=== PATIENT | female | born 1935 | race Caucasian/White ===

== ENCOUNTER 2019-09-19 07:06 | Inpatient (IN) ==
--- NOTE | 2019-08-18 22:25 | PAT Medication Instructions ---
Medication Instructions Date of Service August 18, 2019 Home Medications Fish Oil 1 dose PO DAILY Vitamin D3 1 cap PO BID albuterol sulfate [Proventil HFA] 1 inh INHALATION QID PRN amlodipine 2.5 mg PO QAM calcium carbonate-vitamin D3 [Caltrate 600 plus D] 1 tab PO BID hydrochlorothiazide 25 mg PO QAM hydrocortisone 1 applic TOPICAL BID PRN ibandronate [Boniva] 150 mg PO MONTHLY lidocaine 1 patch TOPICAL DAILY PRN loratadine [Claritin] 10 mg PO QAM montelukast [Singulair] 10 mg PO QAM multivitamin 1 tab PO QAM polymyxin B sulf-trimethoprim [Polytrim] 1 drp OPHTHALMIC (EYE) Q3H Continue as directed lidocaine 1 patch TOPICAL DAILY PRN (okay to continue, avoid placement over surgery site area prior to surgery) ibandronate [Boniva] 150 mg PO MONTHLY STOP taking 2 weeks before surgery (or as soon as possible if surgery is within 2 weeks) Fish Oil 1 dose PO DAILY STOP taking 24 hours before surgery hydrocortisone 1 applic TOPICAL BID PRN DO NOT take the morning of surgery Vitamin D3 1 cap PO BID calcium carbonate-vitamin D3 [Caltrate 600 plus D] 1 tab PO BID hydrochlorothiazide 25 mg PO QAM loratadine [Claritin] 10 mg PO QAM montelukast [Singulair] 10 mg PO QAM multivitamin 1 tab PO QAM Take morning of surgery With a small sip of water, OTHERWISE NOTHING TO EAT OR DRINK AFTER MIDNIGHT: albuterol sulfate [Proventil HFA] 1 inh INHALATION QID PRN (use if needed; please bring with you to hospital day of surgery if possible) amlodipine 2.5 mg PO QAM polymyxin B sulf-trimethoprim [Polytrim] 1 drp OPHTHALMIC (EYE) Q3H Take evening before surgery Vitamin D3 1 cap PO BID albuterol sulfate [Proventil HFA] 1 inh INHALATION QID PRN (if needed) calcium carbonate-vitamin D3 [Caltrate 600 plus D] 1 tab PO BID polymyxin B sulf-trimethoprim [Polytrim] 1 drp OPHTHALMIC (EYE) Q3H Other Notes If you have any questions please call us at [phone] or [phone] or [phone] or [phone]
--- NOTE | 2019-08-19 11:30 | Anesthesiology Consultation ---
Date of Service August 19, 2019 Assessment & Plan (1) Encounter for pre-operative examination: Per PAT assessment on 08/18: Travel screen- patient lives in [facility]/no travel. No known Covid positive contacts. No history of Covid testing. Does report occasional SOB felt related to asthma (chronic issue with no new changes). Otherwise, no current Covid related symptoms. Chart Review Chart Review: Acceptable Risk for Surgery and Patient seen in Pre Admission Testing Teaching & Discussion Pre-Anesthesia Teaching/Discussion Notes: Instructed NPO after midnight before surgery,except medications with 15 cc of water. Medication instructions provided according to the PAT guidelines. History Surgery Operation Date: 09/19/19 12:10 Proposed Procedures p Right Total Knee Arthroplasty - Milton Silverman DO Height/Weight Height: 5 ft 2 in Weight: 61 kg Allergies Allergy/AdvReac Type Severity Reaction Status Date / Time Penicillins Allergy Rash Verified 08/14/19 11:31 oxycodone AdvReac Confusion Verified 08/14/19 11:38 Medications Home Medications Medication Instructions Recorded Confirmed Last Taken Fish Oil 1 dose PO DAILY 08/14/19 08/14/19 Unknown Vitamin D3 1 cap PO BID 08/14/19 08/14/19 Unknown albuterol sulfate [Proventil HFA] 1 inh INHALATION QID PRN 08/14/19 08/14/19 Unknown amlodipine 2.5 mg PO QAM 08/14/19 08/14/19 Unknown calcium carbonate-vitamin D3 1 tab PO BID 08/14/19 08/14/19 Unknown [Caltrate 600 plus D] hydrochlorothiazide 25 mg PO QAM 08/14/19 08/14/19 Unknown hydrocortisone 1 applic TOPICAL BID PRN 08/14/19 08/14/19 Unknown ibandronate [Boniva] 150 mg PO MONTHLY 08/14/19 08/14/19 Unknown lidocaine 1 patch TOPICAL DAILY PRN 08/14/19 08/14/19 Unknown loratadine [Claritin] 10 mg PO QAM 08/14/19 08/14/19 Unknown montelukast [Singulair] 10 mg PO QAM 08/14/19 08/14/19 Unknown multivitamin 1 tab PO QAM 08/14/19 08/14/19 Unknown polymyxin B sulf-trimethoprim 1 drp OPHTHALMIC (EYE) Q3H 08/14/19 08/14/19 Unknown [Polytrim] Past Medical History Medical History Asthma controlled 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 EKG, subsequent unremarkable nuclear stress test done 09/2018 Conjunctivitis Left eye - dx by PCP 08/07/19, almost entirely resolved as of PAT visit/PCP monitoring [place] (hard of hearing) Hypertension Osteoarthritis Osteoporosis PVCs (premature ventricular contractions) Exercise / Class Metabolic Activity III < 4 Walking/Shop/Light housework Past Family History Family History Other No family history of adverse response to anesthesia Past Surgical History Surgical History History of bunionectomy History of cataract surgery History of colonoscopy History of lymph node biopsy benign History of tubal ligation Past Anesthesia History No Hx of Anesthesia Complications and No Family Hx of Anesthesia Complications History of PONV No Hx of PONV and Hx of Motion Sickness (remote hx) Social History Smoking Status: Never smoker Do You Dip or Chew Tobacco: No Hx Alcohol Use: No alcohol intake frequency: holidays/special occasions only Hx Substance Use: No substance use type: does not use Review of Systems Does report occasional SOB felt related to asthma (chronic issue with no new changes) Patient denies chest pain, joint pain, reflux, cough, wheezing, palpitations. Physical Exam Vital Signs VITALS BP 170/84 P 98 TEMP 98.0 SP02 98%RA RESP 20 PHYSICAL Full neck and c-spine range of motion. Full TMJ range of motion. TMD 2.5 finger breaths (Small chin) Mallampati Score 3 Dentition: several missing molars, crown on molar Lungs: clear throughout to auscultation Cardiac: regular rate and rhythm, no murmurs noted Spine: normal Carotid arteries: negative bruit Extremities: no edema Testing Laboratory Results 08/19/19 11:59 08/19/19 11:59 PT 10.3 Seconds (9.0-12.0) 08/19/19 11:59 INR 1.0 (0.9-1.1) 08/19/19 11:59 APTT 30.0 Seconds (21.0-31.0) 08/19/19 11:59 Hemoglobin A1c 5.5 % (4.5-5.6) 08/19/19 11:59 Urine Color Yellow 08/19/19 11:59 Urine Appearance Clear (Clear) 08/19/19 11:59 Urine pH 7.5 (4.5-7.5) 08/19/19 11:59 Ur Specific [place] 1.008 (1.000-1.030) 08/19/19 11:59 Urine Protein Negative (Negative) 08/19/19 11:59 Urine Glucose (UA) Negative (Negative) 08/19/19 11:59 Urine Ketones Negative (Negative) 08/19/19 11:59 Urine Nitrite Negative (Negative) 08/19/19 11:59 Ur Leukocyte Esterase Negative (Negative) 08/19/19 11:59 Blood Type O Positive 08/19/19 11:59 Antibody Screen NEGATIVE 08/19/19 11:59 Electrocardiogram Date: 09/18/18 SR with occasional PVC's at 88bpm. iRBBB. LAFB. Subsequent nuclear stress test done 10/11/18* Chest X-Ray Date: 08/19/19 Emphysema. Small lobular density at the left lung base on the frontal view. This corresponds to the anterior density on the lateral view. Therefore, this favors a prominent mediastinal fat pad. CXR being faxed to PCP for their reference. Stress Test Date: 10/11/18 Type: nuclear (Lexiscan) Normal pharmacologic cardiolite stress test without evidence of infarct or isch emia. Defect most likely related to artifact given normal wall motion analysis. Normal stress EKG. EF 69%. 86% MPHR.
[2019-08-19 12:49] LABS: Basophils # (auto) 0.05 K/uL (0-0.2); Basophils % (auto) 0.5 %; Eosinophils # (auto) 0.51 K/uL (0-0.5); Eosinophils % (auto) 5.4 %; Hematocrit (blood only) 38.7 % (37-47); Hemoglobin 13.1 g/dL (12.0-16.0); Immature Granulocytes # (auto) 0.02 K/uL (0.00-0.02); Immature Granulocytes % (auto) 0.2 %; Lymphocytes # (auto) 2.44 K/uL (1.2-3.4); Lymphocytes % (auto) 25.8 %; Mean Corpuscular Hemoglobin 28.7 pg (25-34); Mean Corpuscular Hgb Conc 33.9 g/dL (32-36); Mean Corpuscular Volume 84.7 fL (80-100); Mean Platelet Volume 9.3 fL (7.4-10.4); Monocytes # (auto) 0.75 K/uL (0.11-0.59); Monocytes % (auto) 7.9 %; Neutrophils % (auto) 60.2 %; Platelet Count 368 K/uL (130-400); RDW Coefficient of Variation 13.5 % (11.5-14.5); RDW Standard Deviation 41.4 fL (36.4-46.3); Red Blood Count 4.57 M/uL (4.2-5.4); White Blood Count 9.47 K/uL (4.8-10.8)
[2019-08-19 12:55] LABS: Appearance Urine Clear (Clear); Bilirubin Urine Negative (Negative); Blood Urine Negative (Negative); Color Urine Yellow; Glucose Urine UA Negative (Negative); Ketones Urine Negative (Negative); Leukocyte Esterase Urine Negative (Negative); Nitrite Urine Negative (Negative); Protein Urine Negative (Negative); Specific Gravity Urine 1.008 (1.000-1.030); Urobilinogen Urine Negative (Negative); pH Urine 7.5 (4.5-7.5)
[2019-08-19 13:01] LABS: Partial Thromboplastin Ratio 1.1; Prothrombin Time 10.3 Seconds (9.0-12.0)
--- NOTE | 2019-08-19 13:01 | XRay Report ---
XR chest Pre-admission PA/Lat HISTORY: Preop. COMPARISON: None. FINDINGS: The lungs are hyperexpanded with apical predominant emphysematous changes. No pneumothorax. No pleural effusions. The heart is normal in size. The right lung is clear. Small lobular density at the left lung base on the frontal view. This corresponds to the anterior density on the lateral view . Therefore, this favors a prominent mediastinal fat pad. IMPRESSION: 1. Emphysema. 2. Small lobular density at the left lung base on the frontal view. This corresponds to the anterior density on the lateral view. Therefore, this favors a prominent mediastinal fat pad. Comparison to ol d studies would be helpful to assess for stability. ACT 112: Negative or not required by law. Electronically signed by: Isaias Mckee M.D. 08/19/2019 1:00 PM
[2019-08-19 13:08] LABS: Albumin Level 3.7 gm/dl (3.4-5.0); Calcium 9.9 mg/dl (8.5-10.1); Creatinine Clr Calc Pharmacy 53.3 ml/min; Est GFR (African American) 93.5; Est GFR (Non-African American) 80.7; Potassium 3.2 mmol/L (3.5-5.1)
[2019-08-19 13:09] LABS: Estimated Average Glucose 111 mg/dl; Hemoglobin A1C 5.5 % (4.5-5.6)
--- NOTE | 2019-09-18 22:44 | History & Physical Report ---
Date of Service September 18, 2019 Assessment & Plan (1) Osteoarthritis of right knee: Schedule a right knee TKA for 09.19.2019. All potential risks, benefits, complications, alternatives, and rehab have been discussed with the patient and she wishes to proceed. Plan for ASA 81 mg BID x 4 days for DVT prophylaxis. History of Present Illness Chief Complaint: right knee pain Primary Care Provider: Bhavesh Green MD This is a patient who has been treated conservatively for right knee DJD for many years. She has failed all conservative management and now being set up for a right TKA. Allergies Allergy/AdvReac Type Severity Reaction Status Date / Time Penicillins Allergy Rash Verified 08/14/19 11:31 oxycodone AdvReac Confusion Verified 08/14/19 11:38 Home Medications Home Medications Medication Instructions Recorded Confirmed Type Fish Oil 1 dose PO DAILY 08/14/19 08/14/19 History Vitamin D3 1 cap PO BID 08/14/19 08/14/19 History albuterol sulfate [Proventil HFA] 1 inh INHALATION QID PRN 08/14/19 08/14/19 History calcium carbonate-vitamin D3 1 tab PO BID 08/14/19 08/14/19 History [Caltrate 600 plus D] hydrocortisone 1 applic TOPICAL BID PRN 08/14/19 08/14/19 History lidocaine 1 patch TOPICAL DAILY PRN 08/14/19 08/14/19 History loratadine [Claritin] 10 mg PO QAM 08/14/19 08/14/19 History montelukast [Singulair] 10 mg PO QAM 08/14/19 08/14/19 History multivitamin 1 tab PO QAM 08/14/19 08/14/19 History amlodipine 10 mg PO DAILY 09/17/19 09/17/19 History moxifloxacin 1 drp OPHTHALMIC (EYE) TID 09/17/19 09/17/19 History Past Med/Surg History Medical History Asthma controlled 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 EKG, subsequent unremarkable nuclear stress test done 09/2018 Conjunctivitis Left eye - dx by PCP 08/07/19, almost entirely resolved as of PAT visit/PCP monitoring [place] (hard of hearing) Hypertension Osteoarthritis Osteoporosis PVCs (premature ventricular contractions) Surgical History History of bunionectomy History of cataract surgery History of colonoscopy History of lymph node biopsy benign History of tubal ligation Family History Other No family history of adverse response to anesthesia Social History Preferred Language: Maltese Communication Ability: Effective Gift Shop Assistant Required: No Beliefs That Will Affect Care: None Current Living Situation: Alone Other Information That Helps Us Care for You: No Feels Safe at Home: Yes Safety Concerns: Feels Safe At This Time Smoking Status: Never smoker Do You Dip or Chew Tobacco: No ; Second Hand Exposure: Yes ( was a smoker) ; Hx Alcohol Use: No Hx Substance Use: No Physical Exam Constitutional: well developed and well nourished; no acute distress ENMT: external ear and nose normal, oropharynx normal Neck: trachea midline, no thyromegaly Respiratory: normal respiratory effort, lungs clear to auscultation Cardiovascular: Rate/Rhythm: regular rate Gastrointestinal (Abdomen): normal bowel sounds, soft, nontender, no hepatosplenomegaly Musculoskeletal: Gait: + antalgic gait (right) Knee: + effusion (right knee), + knee ROM with crepitation (right), + joint line tenderness (right medial and lateral joint spaces) and + Poli's sign positive; no skin erythema and no ecchymosis Skin: no rashes, warm and dry Neurologic: normal touch/pain/proprioception Psychiatric: A+Ox3, euthymic affect Speech: normal rate/rhythm/volume of speech Lymphatic: no cervical or axillary lymphadenopathy
[~2019-09-19 07:06] MED LIST: ACETAMINOPHEN 500 MG TAB PO SCH; CLINDAMYCIN 600 MG/54 ML BAG IV SCH; CeleBREX 200 MG CAP PO SCH; FAMOTIDINE 20 MG TAB PO SCH; GABAPENTIN 300 MG CAP PO SCH; LR 500ML BOLUS, THEN 15ML/HR IV SCH; METOCLOPRAMIDE HCL 10 MG TABLET PO SCH; OXYCODONE HCL 10 MG TABCR (OXYCONTIN) PO SCH; ROPIVACAINE 0.5% HCL/PF 150 MG, BUPIVACAINE 0.5% MPF 30 ML, EPINEPHrine 30MG/30ML (OR U... INFIL SCH; dexAMETHasone 4 MG TAB PO SCH
[2019-09-19] MEDS ORDERED: BUPIVACAINE 0.5 % 5 MG/1 ML PF 10ML VIAL ONE (07:21)
[2019-09-19] MEDS ORDERED: ROPIVACAINE 0.5% 5 MG/ML 30 ML VIAL ONE (07:21)
[2019-09-19] MEDS ORDERED: BACITRACIN INJ 50,000 UNIT VIAL ONE (07:47)
[2019-09-19] MEDS ORDERED: ORTHO JOINT ANESTHETIC ONE (07:47)
[2019-09-19] MEDS ORDERED: CEFAZOLIN 2,000 MG/15 ML IV PUSH IV ONE (08:04)
--- NOTE | 2019-09-19 08:25 | History & Physical Bridge Note ---
Date of Service September 19, 2019 History & Physical Bridge Note I have examined the patient, reviewed the History & Physical and in the interval since the performance of the History & Physical I have noted the following changes of clinical significance: no changes noted
[2019-09-19] MEDS ORDERED: PROPOFOL IV EMULSION 10 MG/ML 20 ML VIAL IV ONE (08:27)
[2019-09-19] MEDS ORDERED: LIDOCAINE HCL 2% 2 ML VIAL/AMP(20MG/ML) INFIL ONE (08:27)
[2019-09-19] MEDS ORDERED: MIDAZOLAM HCL 1 MG/ML 2ML VIAL ONE (08:27)
[2019-09-19] MEDS ORDERED: ATROPINE SULFATE 0.1 MG/ML 10ML SYR IV PRN (08:53)
[2019-09-19] MEDS ORDERED: fentaNYL citrate 100 MCG/2 ML VIAL IV PRN (08:53)
[2019-09-19] MEDS ORDERED: ePHEDrine sulfate 50 MG/ML AMP IV PRN (08:53)
[2019-09-19] MEDS ORDERED: TRANEXAMIC ACID / 0.7% NACL 1,000 MG/100 ML BAG IV STA (09:42)
[2019-09-19] MEDS ORDERED: TRANEXAMIC ACID / 0.7% NACL 1000MG/100ML BAG IV ONE (09:43)
--- NOTE | 2019-09-19 11:04 | Post Operative Brief Note ---
Immediate Post Op Note v1 Date of Surgery September 19, 2019 Pre & Post Diagnosis Operation Date: 09/19/19 09:00 Pre-Op Diagnosis: Osteoarthrits Right Knee, degenerative joint disease right knee, genu varum right, right knee pain Post-Op Diagnosis: Osteoarthrits Right Knee, degenerative joint disease right knee, genu varum right, right knee pain, osteopenic femur and tibia I identified the patient and participated in the time-out.: Yes Procedure Operation Date: 09/19/19 09:00 Actual Procedures p Right Total Knee Arthroplasty with Desai & Nephew journey 2 MRI matched components; size 5 Oxinium femur, size 3 tibia, 10 mm posterior stabilized polyethylene and 32 mm patella (Right) - Milton Silverman DO Surgeon Milton Silverman DO Equipment Tester Ashish Colindres PA-C Estimated Blood Loss 5 Findings Consistent with Post-Op Diagnosis Specimens Bone and tissue right knee Drains Hemovac Drain Anesthesia Type Spinal MAC Complications none Disposition Accompanied Patient To Recovery: No Disposition: Recovery Room Overlapping Procedure I was present for: the critical portions of procedure. I was immediately available: during the entire case.
--- NOTE | 2019-09-19 11:53 | Operative Report (OR) ---
DATE OF OPERATION: 09/19/2019 PREOPERATIVE DIAGNOSES: 1. Right knee osteoarthritis. 2. Degenerative joint disease, right knee. 3. Genu varum, right knee. 4. Right knee pain. POSTOPERATIVE DIAGNOSES: 1. Osteoarthritis, right knee. 2. Degenerative joint disease, right knee. 3. Genu varum, right knee. 4. Right knee pain. 5. Osteopenic femur and tibia. PROCEDURE: Right total knee arthroplasty with Desai and Nephew Journey II MRI matched components, size 5 Oxinium femur, size 3 tibia, 10 mm posterior stabilized polyethylene and a 32 mm patella. SURGEON: Milton Silverman DO. COURSE DEVELOPER: Ashish Colindres PA-C. ANESTHESIA: Spinal, MAC with adductor canal block and intra-articular local. SPECIMENS: Bone and tissue, right knee. DRAINS: Hemovac x2. COMPLICATIONS: None. BLOOD LOSS: 5 mL. PERTINENT HISTORY: This is an 84-year-old female with chronic progressive and worsening right knee pain and deformity over the last 5-7 years. Over the last 12 months; however, the patient had severe pain in the knee and failed all conservative measures including physician directed home exercises, physical therapy, use of a brace, use of an assistive device, topical and oral anti-inflammatories, intra-articular injections, rest, observation and modification of activities. The patient had radiographs demonstrating complete loss of joint space, medial compartment and patellofemoral compartment with marginal osteophytes, subchondral sclerosis and subchondral cysts. The patient is scheduled for surgery as indicated. All potential risks, benefits, complications, alternatives, rehab, potential for incomplete relief of symptoms, need for further surgery, DVT, PE, , persistent pain, swelling, scarring, weakness, neurovascular injury, wound complications, hardware failure, nonunion, malunion, bone fracture were discussed with the patient. The patient decided to proceed with the procedure as indicated. PROCEDURE: The patient was taken to the Operative Suite and placed supine on the operating table after spinal epidural was initiated. Next, tourniquet was placed high on the right thigh over cast padding and the patient was sedated. The right lower extremity was then sterilely prepped and draped in the usual fashion. It was elevated and exsanguinated with an Esmarch bandage and tourniquet inflated to 350 mmHg. Next, a 10-blade scalpel incision was made along the anterior midline of the right knee with incision deep through the subcutaneous tissue. Meticulous hemostasis was utilized with electrocautery. Full thickness skin flaps were developed both medially and laterally and 10-blade scalpel was used to make a median parapatellar incision in the extensor. The patella was everted and soft tissue releases were performed. The medial collateral was noted to be slightly tight so this was partially released using pie-crusting technique and the Dutton elevator was placed from the posterior aspect of the capsule releasing any contracture. Next, the patella was everted and resurfaced using sagittal saw and orthogonal cuts. After caliper measured 24 mm, residual patella was approximately 12 mm and 32 mm button trial was placed and then drilled. Next, the appropriate retractors were placed and the femoral patient matched cutting block was pinned to the distal aspect of the femur. The distal femoral cut was made and pinned with pins and the distal femoral cutting guide was removed. Bone was noted to be significantly soft with increased loss of calcification with softening of the endosteal bone of both the femur and the tibia. The 4-in-1 cutting block was then pinned in place and anterior, posterior, anterior chamfer, and posterior chamfer cuts were made. Block and bone fragments were then removed followed by exposure of the proximal tibia. Sharp Hohmann was used to place just posterior to the tibia to protract it. Medial and lateral sharp Hohmann's were placed to protect the soft tissue and the tibial cutting block was then pinned in place. Tibial alignment pradeep was utilized to confirm alignment and the proximal tibia was then cut made with sagittal saw. Fragment was removed. The Size 8 tibial trial was pinned in place and circumferential proximal release was performed with electrocautery around the proximal tibia. Next, the femoral trial was placed within appropriate medial and lateral alignment and then the cutting block was then put into place. It was reamed and box cut was performed. Excess debris was removed from the femoral notch. The insert was placed into the distal aspect of the femur. Trial poly Size 10 mm was placed in the proximal tibia. The knee was reduced. Trial poly Size 38 mm was placed in the patella. The knee was reduced. Excellent alignment and range of motion was achieved with correction of the genu varum and flexion contracture was achieved. Of note, +2 distal femoral cut was performed as a result of his flexion contracture prior to placement of the 4-in-1 cutting block. Next, all components were removed. The Orthomix was injected into the posterior capsule and anterior aspect of the capsule. Next, the wound was lavaged with pulsatile lavage and all surfaces were suctioned and dried. Palacos-G cement was placed in the distal femur, proximal tibia, patella, and then a small amount was placed in the canal of the tibia. All implants were impacted into place in a stable fashion. Excess cement was removed from the joint. The patellar button was cemented and clamped in place. After sufficient drying time elapsed a 10-Mongolian double lumen Hemovac drain was placed in the anterolateral aspect of the knee. The extensor mechanism was closed using interrupted #1 Vicryl. The dermis was closed using buried interrupted 2-0 Vicryl. The skin was closed with skin katia. Sterile compressive dressing from the toes to the groin was applied. The tourniquet was released. The patient was awakened and taken to the Recovery Room in stable condition. I attest to the content of the Intraoperative Record and any orders documented therein. Any exceptions are noted below. COLTOND
--- NOTE | 2019-09-19 12:06 | Anesthesiology Progress Note ---
Date of Service September 19, 2019 Anesthesia Post Procedure Vital Signs Vital Signs: Temp Pulse Pulse Resp BP Pulse Ox 09/19/19 11:55 75 22 128/77 97 09/19/19 11:45 77 20 124/86 98 09/19/19 11:35 74 18 125/70 97 09/19/19 11:27 36.4 C L 67 19 103/61 100 09/19/19 08:42 88 17 153/72 H 99 09/19/19 07:41 37.1 C 90 20 170/94 H 100 Transfer of Care Handoff Completed per policy Notes Mental Status: alert / awake / arousable and participated in evaluation Patient Amnestic to Procedure: Yes Nausea / Vomiting: adequately controlled Pain: adequately controlled Airway Patency, RR, SpO2: stable & adequate BP & HR: stable & adequate Hydration State: stable & adequate Neuraxial Anesthesia: was administered and sensory block is resolving Anesthetic Complications: no major complications apparent
--- NOTE | 2019-09-19 12:12 | XRay Report ---
XR knee RT 1 or 2V routine CLINICAL HISTORY: Surgical Post Op COMPARISON: None. DISCUSSION: Anatomic alignment posttotal right knee arthroplasty. Could contact between prosthetic an d underlying bone. Expected postoperative soft tissue change. IMPRESSION: Anatomic alignment posttotal right knee arthroplasty. ACT 112: Negative or not required by law. The above report was generated using voice recognition software. It may contain grammatical, syntax or spelling errors. Electronically signed by: Eliu Barrera M.D. 09/19/2019 12:10 PM
[2019-09-19] MEDS ORDERED: ALBUTEROL HFA 8 GM INHALER INH PRN (12:48)
[2019-09-19] MEDS ORDERED: HYDROmorphone INJ 0.5 MG/0.5 ML SYR IV PRN (12:48)
[2019-09-19] MEDS ORDERED: ONDANSETRON INJ 2 MG/ML 2 ML VIAL IV PRN (12:48)
[2019-09-19] MEDS ORDERED: bisacodyL 10 MG SUPP PR PRN (12:48)
[2019-09-19] MEDS ORDERED: NALOXONE HCL 0.4 MG/1 ML VIAL/CARP IV PRN (12:48)
[2019-09-19] MEDS ORDERED: MAGNESIUM HYDROXIDE SUSP 30 ML UDC PO PRN (12:48)
--- NOTE | 2019-09-19 13:15 | Hospitalist Consultation ---
Date of Consultation September 19, 2019 Assessment & Plan (1) Status post right knee replacement: This is an 84yo F with a PMH of HTN, HLD and asthma who is POD#0 s/p R TKA by Dr. Silverman. -POD#0 s/p R TKA by Dr. Silverman -Pt is doing well post-operatively -Per ortho for pain control, wound care, anticoagulation and activities -Monitor H&H (EBL: 5ml) , continue incentive spirometry, PT/OT when appropriate (2) Hypertension: Normotensive. Continue amlodipine (3) Bifascicular block: Noted in outpatient records as well as preop EKG. Will repeat EKG if needed (4) Asthma: Continue home inhalers, Singulair PCP: Shilpi Martin) Dispo: Plan to return home once medically stable Patient seen in collaboration with Dr. Ramirez. Please see addendum. Supervising Physician Co-Signing Physician Notes Patient is an 84-year-old female with history of hypertension, dyslipidemia and other medical problems was seen and examined postop after having right total knee arthroplasty by Dr. Silverman. Patient is doing well postop. She states hayes ving some leg numbness in her right knee, foot. Denies any chest pain, shortness of breath. On exam patient is moderately built and nourished, normocephalic atraumatic, lungs are clear to auscultation, decreased breath sounds, S1-S2, no murmur, no pedal edema, abdomen soft nontender, right knee surgical site in dressing, grossly no focal neurological deficits. Patient is consulted for postop medical management. Monitor for postop anemia. Continue bowel regimen to prevent constipation. DVT prophylaxis, activity, pain control as per primary team. Continue home medications for hypertension. QTC is prolonged at 467. Potassium replaced for hypokalemia. I personally reviewed the record. Patient is interviewed and examined at bedside. Patient's care is coordinated with Bee Candelaria PA-C. Please refer to the documentation above for details of patient's presentation and for discussion of other issues. History of Present Illness Reason for Consultation: post op medical mgmt Attending Physician: Milton Silverman, DO History of Present Illness This is an 84yo F with a PMH of HTN, HLD and asthma who is POD#0 s/p R TKA by Dr. Silverman. Patient is feeling well postoperatively. Denies any surgical site pain. Tolerating lunch well without nausea or vomiting. Denies any fever, chills, lightheadedness, headache, chest pain, shortness of breath, abdominal pain, dysuria, diarrhea or constipation. Allergies Allergy/AdvReac Type Severity Reaction Status Date / Time Penicillins Allergy Rash Verified 09/19/19 07:44 oxycodone AdvReac Confusion Verified 09/19/19 07:44 Home Medications Home Medications Medication Instructions Recorded Confirmed Type Fish Oil 1 dose PO DAILY 08/14/19 09/19/19 History albuterol sulfate [Proventil HFA] 1 inh INHALATION QID PRN 08/14/19 09/19/19 History calcium carbonate-vitamin D3 1 tab PO BID 08/14/19 09/19/19 History [Caltrate 600 plus D] hydrocortisone 1 applic TOPICAL BID PRN 08/14/19 09/19/19 History loratadine [Claritin] 10 mg PO QAM 08/14/19 09/19/19 History montelukast [Singulair] 10 mg PO HS 08/14/19 09/19/19 History multivitamin 1 tab PO QAM 08/14/19 09/19/19 History amlodipine 10 mg PO DAILY 09/17/19 09/19/19 History moxifloxacin 1 drp OPHTHALMIC (EYE) TID 09/17/19 09/19/19 History cholecalciferol (vitamin D3) 25 mcg PO DAILY 09/19/19 09/19/19 History Patient History Medical History Asthma controlled 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 EKG, subsequent unremarkable nuclear stress test done 09/2018 Conjunctivitis Left eye - dx by PCP 08/07/19, almost entirely resolved as of PAT visit/PCP monitoring PAMUNKEY (hard of hearing) Hypertension Osteoarthritis Osteoporosis PVCs (premature ventricular contractions) Surgical History History of bunionectomy History of cataract surgery History of colonoscopy History of lymph node biopsy benign History of tubal ligation Family History (Updated 09/19/19 @ 15:01 by Bee Candelaria PA-C) Other Hypertension No family history of adverse response to anesthesia Stroke Social History Preferred Language: Romanian Communication Ability: Effective Biology Lecturer Required: No Beliefs That Will Affect Care: None Current Living Situation: Alone Other Information That Helps Us Care for You: No Feels Safe at Home: Yes Safety Concerns: Feels Safe At This Time Smoking Status: Never smoker Do You Dip or Chew Tobacco: No ; Second Hand Exposure: Yes ( was a smoker) ; Hx Alcohol Use: No Hx Substance Use: No Review of Systems Review of Systems: At least ten systems reviewed and negative except as noted in the HPI. Physical Exam Physical Exam: General Appearance: WD/WN, vitals as above, NAD, sitting up in bed, pleasant, conversing easily Head: normocephalic, atraumatic Eyes: normal inspection, PERRL, conjunctivae normal, anicteric sclerae ENT: external ear and nose normal, oropharynx normal Neck: trachea midline, no thyromegaly normal visual inspection Respiratory: normal respiratory effort, lungs clear to auscultation but decreased breath sounds bilaterally, no wheeze, rales, rhonchi Cardiovascular: regular rate, rhythm, no murmur, normal peripheral pulses Chest: normal inspection of chest Abdomen/GI: normal bowel sounds, soft, nontender, no hepatosplenomegaly Extremities/Musculoskeletal: R knee with surgical dressing clean, dry, intact. No cyanosis or clubbing, extremities motor strength 5/5 Neurologic: PERRL, CN's II-XI intact bilaterally and moves all extremities Psychiatric: A+Ox3, euthymic affect Skin: no rashes, normal color, warm/dry Results & Data Results & Data ([facility]) Vital Signs (Past 12 Hours) Vital Signs Temp Pulse Pulse Resp BP Pulse Ox 09/19/19 13:00 77 15 129/70 99 09/19/19 12:48 36.5 C 75 15 116/72 97 09/19/19 12:05 36.8 C 68 17 131/66 96 09/19/19 11:55 75 22 128/77 97 09/19/19 11:45 77 20 124/86 98 09/19/19 11:35 74 18 125/70 97 09/19/19 11:27 36.4 C L 67 19 103/61 100 09/19/19 08:42 88 17 153/72 H 99 09/19/19 07:41 37.1 C 90 20 170/94 H 100
[2019-09-19] MEDS ORDERED: POTASSIUM CHLORIDE 20 MEQ TABCR PO STA (13:34)
[2019-09-19] MEDS ORDERED: POLYETHYLENE (MIRALAX) 17 GM PACK PO PRN (13:35)
[2019-09-19] MEDS: SODIUM CHLORIDE 0.9% 1000ML 1,000 ML IV SCH (14:27)
[2019-09-19] MEDS: MOXIFLOXACIN HCL 0.5% OP SOLN 3 ML BTL OP SCH ×2 (14:28→21:04)
[2019-09-19] MEDS: ACETAMINOPHEN 500 MG TAB PO SCH ×2 (14:30→21:04)
[2019-09-19] MEDS: TRAMADOL HCL 50 MG TABLET PO PRN (17:19)
[2019-09-19] MEDS: FERROUS GLUCONATE 324 MG TAB PO SCH (17:20)
[2019-09-19] MEDS: CLINDAMYCIN 600 MG in DEXTROSE 5% 50 ML IV SCH (17:24)
[2019-09-19] MEDS ORDERED: SENNA 8.6 MG TAB PO SCH (21:00)
[2019-09-19] MEDS ORDERED: DOCUSATE SODIUM 100 MG CAP PO SCH (21:00)
[2019-09-19] MEDS: CHOLECALCIFEROL 1,000 UNITS 25 MCG TAB PO SCH (21:03)
[2019-09-19] MEDS: ASPIRIN 81 MG ECTAB PO SCH (21:04)
[2019-09-19] MEDS: DOCUSATE SODIUM 100 MG CAP PO SCH (21:05)
[2019-09-19] MEDS: CALCIUM 600MG + VIT D 400 IU TAB PO SCH (21:06)
[2019-09-20] MEDS: CLINDAMYCIN 600 MG in DEXTROSE 5% 50 ML IV SCH (01:08)
[2019-09-20] MEDS: SODIUM CHLORIDE 0.9% 1000ML 1,000 ML IV SCH (01:08)
[2019-09-20] MEDS: ACETAMINOPHEN 500 MG TAB PO SCH (05:42)
[2019-09-20 07:23] LABS: Hematocrit (blood only) 31.5 % (37-47); Hemoglobin 10.4 g/dL (12.0-16.0); Mean Corpuscular Hemoglobin 28.7 pg (25-34); Mean Corpuscular Volume 86.8 fL (80-100); Platelet Count 324 K/uL (130-400); RDW Coefficient of Variation 13.8 % (11.5-14.5); RDW Standard Deviation 43.8 fL (36.4-46.3); Red Blood Count 3.63 M/uL (4.2-5.4); White Blood Count 20.76 K/uL (4.8-10.8)
[2019-09-20 07:50] LABS: BUN Creatinine Ratio 27.7 (10-20); Calcium 9.2 mg/dl (8.5-10.1); Creatinine Clr Calc Pharmacy 43.4 ml/min; Est GFR (African American) 80.8; Est GFR (Non-African American) 69.7; Potassium 3.9 mmol/L (3.5-5.1)
[2019-09-20] MEDS: ASPIRIN 81 MG ECTAB PO SCH (08:35)
[2019-09-20] MEDS: DOCUSATE SODIUM 100 MG CAP PO SCH (08:35)
[2019-09-20] MEDS: MOXIFLOXACIN HCL 0.5% OP SOLN 3 ML BTL OP SCH (08:36)
[2019-09-20] MEDS: FERROUS GLUCONATE 324 MG TAB PO SCH (08:36)
[2019-09-20] MEDS: CHOLECALCIFEROL 1,000 UNITS 25 MCG TAB PO SCH (08:36)
[2019-09-20] MEDS: CALCIUM 600MG + VIT D 400 IU TAB PO SCH (08:41)
[2019-09-20] MEDS ORDERED: LORATADINE 10 MG TAB PO SCH (09:00)
[2019-09-20] MEDS ORDERED: AMLODIPINE BESYLATE 5 MG TAB PO SCH (09:00)
[2019-09-20] MEDS ORDERED: MONTELUKAST SODIUM 10 MG TABLET PO SCH (09:00)
[2019-09-20] MEDS ORDERED: MULTIVITAMIN TAB PO SCH (09:00)
[2019-09-20] MEDS: TRAMADOL HCL 50 MG TABLET PO PRN ×2 (09:54→12:38)
--- NOTE | 2019-09-20 10:11 | Orthopedic Progress Note ---
Date of Service September 20, 2019 Assessment & Plan (1) Osteoarthritis of right knee: Postop day 1 status post right total knee arthroplasty PT/OT protocols. Weightbearing as tolerated DVT prophylaxis with aspirin p.o. twice daily, Mik, MARYANNE raya. Pain management as written. Leukocytosis-likely due to surgical stress, preoperative steroids. Patient is asymptomatic at this time. Acute blood loss anemia-preop H&H was 13.1; labs noted as above. Asymptomatic. DC planning-patient is planning on home health services upon discharge. Admission and Anticipated Discharge Date Admission Date: September 19, 2019 Subjective Postop day 1 Patient is currently sitting up in her chair at the bedside. Awake and alert and oriented. Pain is controlled. He denies any shortness of breath, chest pain, lightheadedness. She states that she is feeling very well and is hoping to go home today. Discussed that it would depend on how well she does with her physical therapy and as long as her pain control is adequate. Physical Exam Physical Exam: Dressings are clean, dry, and intact. Calves are soft nontender. Neurovascular is intact. Toes are mobile. She has good dorsiflexion plantarflexion on the operative side. Hemovac drainage was 50 mL's from previous shift. Marcus wound VAC appears to be functioning well. Results & Data ([facility]) Vital Signs (Past 12 Hours) Vital Signs Temp Pulse Resp BP Pulse Ox 09/20/19 08:00 36.4 C L 75 16 126/72 99 09/20/19 02:13 36.4 C L 77 16 118/69 96 09/19/19 23:30 36.5 C 81 16 96/59 L 98 Laboratory Results Laboratory Results WBC 20.76 K/uL (4.8-10.8) H 09/20/19 07:09 RBC 3.63 M/uL (4.2-5.4) L 09/20/19 07:09 Hgb 10.4 g/dL (12.0-16.0) L 09/20/19 07:09 Hct 31.5 % (37-47) L 09/20/19 07:09 MCV 86.8 fL (80-100) 09/20/19 07:09 MCH 28.7 pg (25-34) 09/20/19 07:09 MCHC 33.0 g/dL (32-36) 09/20/19 07:09 RDW Std Deviation 43.8 fL (36.4-46.3) 09/20/19 07:09 RDW Coeff of Zach 13.8 % (11.5-14.5) 09/20/19 07:09 Plt Count 324 K/uL (130-400) 09/20/19 07:09 MPV 9.0 fL (7.4-10.4) 09/20/19 07:09 Immature Gran % (Auto) 0.2 % 08/19/19 11:59 Neut % (Auto) 60.2 % 08/19/19 11:59 Lymph % (Auto) 25.8 % 08/19/19 11:59 [place] % (Auto) 7.9 % 08/19/19 11:59 Eos % (Auto) 5.4 % 08/19/19 11:59 Baso % (Auto) 0.5 % 08/19/19 11:59 Immature Gran # (Auto) 0.02 K/uL (0.00-0.02) 08/19/19 11:59 Neut # (Auto) 5.70 K/uL (1.4-6.5) 08/19/19 11:59 Lymph # (Auto) 2.44 K/uL (1.2-3.4) 08/19/19 11:59 [place] # (Auto) 0.75 K/uL (0.11-0.59) H 08/19/19 11:59 Eos # (Auto) 0.51 K/uL (0-0.5) H 08/19/19 11:59 Baso # (Auto) 0.05 K/uL (0-0.2) 08/19/19 11:59 PT 10.3 Seconds (9.0-12.0) 08/19/19 11:59 INR 1.0 (0.9-1.1) 08/19/19 11:59 APTT 30.0 Seconds (21.0-31.0) 08/19/19 11:59 PTT Ratio 1.1 08/19/19 11:59 Sodium 134 mmol/L (136-145) L 09/20/19 07:09 Potassium 3.9 mmol/L (3.5-5.1) 09/20/19 07:09 Chloride 102 mmol/L (98-107) 09/20/19 07:09 Carbon Dioxide 26 mmol/L (21-32) 09/20/19 07:09 Anion Gap 6.0 (3-11) 09/20/19 07:09 BUN 22 mg/dl (7-18) H 09/20/19 07:09 Creatinine 0.79 mg/dl (0.6-1.2) 09/20/19 07:09 Est Cr Clr Drug Dosing 43.4 ml/min 09/20/19 07:09 Est GFR ( Amer) 80.8 09/20/19 07:09 Est GFR (Non-Af Amer) 69.7 09/20/19 07:09 BUN/Creatinine Ratio 27.7 (10-20) H 09/20/19 07:09 Glucose 91 mg/dl (70-99) 09/20/19 07:09 Estimat Average Glucose 111 mg/dl 08/19/19 11:59 Hemoglobin A1c 5.5 % (4.5-5.6) 08/19/19 11:59 Calcium 9.2 mg/dl (8.5-10.1) 09/20/19 07:09 Albumin 3.7 gm/dl (3.4-5.0) 08/19/19 11:59 Urine Color Yellow 08/19/19 11:59 Urine Appearance Clear (Clear) 08/19/19 11:59 Urine pH 7.5 (4.5-7.5) 08/19/19 11:59 Ur Specific [place] 1.008 (1.000-1.030) 08/19/19 11:59 Urine Protein Negative (Negative) 08/19/19 11:59 Urine Glucose (UA) Negative (Negative) 08/19/19 11:59 Urine Ketones Negative (Negative) 08/19/19 11:59 Urine Blood Negative (Negative) 08/19/19 11:59 Urine Nitrite Negative (Negative) 08/19/19 11:59 Urine Bilirubin Negative (Negative) 08/19/19 11:59 Urine Urobilinogen Negative (Negative) 08/19/19 11:59 Ur Leukocyte Esterase Negative (Negative) 08/19/19 11:59 Blood Type O Positive 08/19/19 11:59 Antibody Screen NEGATIVE 08/19/19 11:59
--- NOTE | 2019-09-24 16:54 | Discharge Summary (DS) ---
DISCHARGE DIAGNOSIS: Degenerative joint disease, right knee. SECONDARY DIAGNOSES: Asthma, history of bifascicular block, past history of conjunctivitis, hard of hearing, hypertension, osteoarthritis, osteoporosis, history of premature ventricular contractions. CONSULTS: Bee Candelaria PA-C/Dr. Ramirez. COMPLICATIONS: None. PROCEDURES: Right total knee arthroplasty performed by Dr. Silverman on 09/19/2019. BRIEF HISTORY: As dictated in history and physical. HOSPITAL SUMMARY: The patient was admitted on the above-noted date and had the above-noted surgery performed, which she tolerated well. On her first postoperative day, she was sitting up in her chair at the bedside. She is awake and alert and oriented. Pain was controlled. Denied shortness of breath, chest pain or lightheadedness and stated that she was feeling well and was hoping to go home. Dressings clean, dry and intact. Calves were soft, nontender, neurovascularly intact. Toes were mobile. She could dorsiflex and plantar flex on the operative side. Hemovac drainage was 50 mL in the previous shift. DOUGLAS wound VAC appeared to be functioning well. Vital signs were stable and she was afebrile. Hemoglobin was 10.4, white count was noted to be 20.7, which was likely due to surgical stress and preoperative steroids. The patient was remaining asymptomatic and was continued on her protocols. She had been started on PT and OT protocols, weightbearing as tolerated. DVT prophylaxis and pain management. She was planning for home health services upon discharge. She was otherwise continued to remain stable throughout her stay. She progressed well with her physical therapy and it was felt that she could be discharged to home on 09/20/2019. For further review, please see chart. LABORATORY AND X-RAY DATA: As per chart. DISCHARGE INSTRUCTIONS: The patient was discharged home in satisfactory condition on 09/20/2019. DIET: Heart healthy. ACTIVITY: Weightbearing as tolerated on the right lower extremity with walker, crutches. Follow TK instruction sheets and special care instructions as noted. Follow up with Dr. Silverman in 2 weeks. The patient to call for an appointment if one has not been made for you. DISCHARGE MEDICATIONS: Acetaminophen 1000 mg p.o. q.8 hours, aspirin 81 mg p.o. b.i.d., sennoside 17.2 mg p.o. at bedtime, tramadol 50-100 mg p.o. q.4 hours p.r.n. Resume home meds as listed and stop taking fish oil.
== END 2019-09-20 14:14 | disposition home health service (06) | DRG 470 ==
LOC: ASU 07:06 → 3E 11:51

== ENCOUNTER 2023-04-30 05:09 | Observation (INO) ==
--- NOTE | 2023-04-24 08:31 | Anesthesiology Consultation ---
Date of Service April 24, 2023 Assessment & Plan (1) Encounter for pre-operative examination: Plan - Per manager category on 04/20/23: No known infectious disease contacts, current infectious disease symptoms in past 10 days or COVID positive test result in the past 30 days. Chart Review Chart Review: Acceptable Risk for Surgery and Patient NOT seen in Pre Admission Testing History Surgery Operation Date: 04/30/23 07:00 Proposed Procedures p Left Breast Mastectomy - Sil Simental DO Height/Weight Height: 5 ft 2 in Weight: 60.328 kg Allergies Allergy/AdvReac Type Severity Reaction Status Date / Time Penicillins Allergy Unknown Rash Verified 04/20/23 08:46 tramadol Allergy Unknown confusion Verified 04/20/23 08:46 amlodipine AdvReac Intermediate lower leg Verified 04/20/23 08:46 swelling oxycodone AdvReac Unknown Confusion Verified 04/20/23 08:46 Medications Home Medications Medication Instructions Recorded Confirmed Last Taken denosumab 60 mg/mL subcutaneous 60 mg subcut Q6M 11/29/20 04/20/23 Unknown syringe (Prolia) Proventil HFA 90 mcg/actuation 2 puff inhalation QID PRN 04/15/21 04/20/23 Unknown aerosol inhaler (albuterol sulfate) shortness of breath or wheezing #6.7 grams hydrocortisone 1 % topical cream 1 applic topical BID PRN prn 03/30/22 04/20/23 Unknown mometasone-formoterol HFA 100 2 puff inhalation BID #39 grams 08/08/22 04/20/23 Unknown mcg-5 mcg/actuation aerosol inhaler (Dulera) acetaminophen 500 mg tablet 500 mg PO Q6H PRN Pain 04/12/23 04/20/23 Unknown losartan 25 mg tablet 25 mg PO QAM 04/20/23 04/20/23 Unknown mv-min-vit C-ascorb 4 tab PO QAM 04/20/23 04/20/23 Unknown Ms-Nhr-Zvc-herb #124 333 mg-1.7 mg chewable tablet (Airborne (ascorbate sodium)) loratadine 10 mg tablet (Claritin) 10 mg PO QAM #90 tabs 04/24/23 Unknown metoprolol succinate 25 mg 25 mg PO QAM #90 tabs 04/24/23 Unknown tablet,extended release 24 hr Past Medical History Medical History Arthritis Asthma controlled follows with Dr Jones last seen 05/2022, uses inhalers for TRISTAN Basal cell carcinoma Nose 2020- [facility]. 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 EKG, subsequent unremarkable nuclear stress test done 09/2018, states to longer needs to see regional property manager Chronic allergic conjunctivitis DCIS (ductal carcinoma in situ) History of COVID-19 2019, no hospitalization History of skin cancer nose SOLOMON (hard of hearing) Hypercholesterolemia Hypertension Occipital pain Osteoarthritis Osteopenia Osteoporosis Parotid mass Posterior neck pain PVCs (premature ventricular contractions) Scoliosis Vitamin D deficiency Past Family History Family History Daughter Basal cell carcinoma Brother Myocardial infarction Heart disease Other Hypertension No family history of adverse response to anesthesia Stroke Denies family history of Ovarian cancer Prostate cancer Breast cancer Colorectal cancer Past Surgical History Surgical History History of arthroplasty of right knee History of bunionectomy History of cataract surgery History of colonoscopy History of lymph node biopsy benign History of total knee replacement right History of tubal ligation Social History Smoking Status: Never smoker Do You Dip or Chew Tobacco: No Hx Alcohol Use: Yes Alcohol type: wine alcohol intake frequency: holidays/special occasions only Hx Substance Use: No substance use type: does not use Testing Laboratory Results 04/23/23 WBC: 9.8 H/H: 14/44 PLATELETS: 365,000 SODIUM: 135 POTASSIUM: 4.3 CHLORIDE: 98 CO2: 25 BUN: 22 CREATININE: 0.7 GLUCOSE: 87 Electrocardiogram Date: 04/23/23 NSR, rate 95 bpm LVH with secondary repolarization abnormality Cannot rule out septal infarct, cited on or before 08/05/21 Chest X-Ray Date: 11/16/22 No active cardiopulmonary disease seen Echocardiogram Date: 02/25/18 EF 65-69% No LV segmental wall motion abnormalities No significant valvular disease Stress Test Date: 05/13/21 Pharmacologic MPHR 100% Negative for inducible ischemia EF 60% Grade I diastolic dysfunction Mild mitral regurgitation Mild tricuspid regurgitation Normal LV wall motion Pulmonary Function Test Date: 04/23/23 FVC 128% pred FEV1 99% FEV1/FVC 76% DLCO 87% *no recent Hgb for DLCO correction per report
[2023-04-30] MEDS ORDERED: LR 15ML/HR IV SCH (06:00)
[2023-04-30] MEDS ORDERED: LACTATED RINGER'S 1,000 ML IV SCH (06:00)
[2023-04-30] MEDS ORDERED: ceFAZolin 2000MG 2,000 MG/15 ML SYR IV SCH (06:00)
[2023-04-30] MEDS ORDERED: ePHEDrine sulfate 50 MG/ML AMP IV PRN ×2 (06:39→10:40)
[2023-04-30] MEDS ORDERED: ATROPINE SULFATE 0.1 MG/ML 10ML SYR IV PRN (06:39)
[2023-04-30] MEDS ORDERED: ONDANSETRON INJ 2 MG/ML 2 ML VIAL IV PRN ×2 (06:39→12:59)
[2023-04-30] MEDS ORDERED: LIDOCAINE 2% 2 ML VIAL/AMP(20MG/ML) INFIL ONE (06:51)
[2023-04-30] MEDS ORDERED: NEOSTIGMINE METHYLSULFATE 1 MG/ML 10ML VIAL ONE (06:51)
[2023-04-30] MEDS ORDERED: fentaNYL citrate PF 100 MCG/2 ML VIAL ONE ×2 (06:51→10:34)
[2023-04-30] MEDS ORDERED: DEXAMETHASONE SOD INJ 4 MG/ML VIAL ONE (06:51)
[2023-04-30] MEDS ORDERED: MIDAZOLAM HCL 1 MG/ML 2ML VIAL ONE (06:51)
[2023-04-30] MEDS ORDERED: ONDANSETRON INJ 2 MG/ML 2 ML VIAL ONE (06:51)
[2023-04-30] MEDS ORDERED: ROCURONIUM BROMIDE 10 MG/ML 5 ML VIAL IV ONE (06:51)
[2023-04-30] MEDS ORDERED: PROPOFOL IV EMULSION 10 MG/ML 20 ML VIAL IV ONE ×7 (06:51→06:56)
[2023-04-30] MEDS ORDERED: GLYCOPYRROLATE 0.2 MG/ML VIAL ONE ×2 (06:51→10:37)
--- NOTE | 2023-04-30 06:55 | History & Physical Bridge Note ---
Date of Service April 30, 2023 History & Physical Bridge Note I have examined the patient, reviewed the History & Physical and in the interval since the performance of the History & Physical I have noted the following changes of clinical significance: no changes noted. Patient presents for left breast mastectomy. The consent has been obtained.
[2023-04-30] MEDS ORDERED: BUPIVACAINE/EPINEPHRINE 0.5% MPF 1:200,000 30 ML VIAL ONE (07:03)
[2023-04-30] MEDS ORDERED: BACITRACIN OINT 14 GM TUBE ONE (07:03)
--- NOTE | 2023-04-30 10:15 | Operative Report ---
PG Post Operative Report Pre & Post Diagnosis Operation Date: 04/30/23 07:00 Pre-Op Diagnosis: Ductal Carcinoma in Situ (DCIS) of Left Breast Post-Op Diagnosis: Ductal Carcinoma in Situ (DCIS) of Left Breast I identified the patient and participated in the time-out.: Yes Procedure Operation Date: 04/30/23 07:00 Actual Procedures p Left Breast Mastectomy(Left) - Sil Simental DO Surgeon Sil Simental DO Oil Heat Technician NIEVES Cardoza Estimated Blood Loss 40 Findings See Below Specimens Left breast. Silk suture mchugh axillary tail. Drains 10 Fr flat HANNAH Anesthesia Type General Complications None Indications Left breast cancer Description of Procedure The patient was brought back to the operating room placed on the operating room table in supine position. He was connected to cardiac and oxygen monitoring. SCDs were applied to bilateral lower extremities and general anesthesia was administered. A secured airway was established. The anterior chest was prepped and draped in typical sterile fashion exposing only the left breast and a timeout was conducted. A sterile marking pen was used to mary the lines for planned incision. An elliptical incision was made at the left breast using a 15 blade after injecting local anesthetic into the skin and subcutaneous tissues. Skin flaps were raised in all directions. The mammary and lobular tissue were dissected away from the subcutaneous tissue to the usual mastectomy borders. The mammary tissue was then dissected posteriorly in all directions to reach the muscle fascia which was elevated away from the muscle and a medial to lateral direction. At the axillary tail the pectoralis neurovascular bundle was encountered. This was controlled with clamps and then ligated using a silk suture and transected. Once the breast was removed there was noted a vessel that had been pulled away from a axillary vein at the orifice. This was closed with a 5-0 Prolene suture. 2 other small venous vessels that were transected in this region were suture ligated using 3-0 silk suture. The area was copiously irrigated and dried. The area was checked for hemostasis which was achieved using cautery. A 10 Japanese, flat HANNAH drain was inserted. The deep dermis was coapted using 3-0 Vicryl suture and the superficial skin was closed using 4-0 Vicryl suture. He area was wiped clean using a soaked lap pad and dried. Steri-Strips were then applied to the incision. The incision was further dressed with a bulky gauze dressing covered with ABD pads and secured in place with an [place] wrap. The patient tolerated the procedure very well. She was awakened from anesthesia, the secure airway was removed and the patient was transferred to recovery in stable condition. I attest to the content of the Intraoperative Record and any orders documented therein. Any exceptions are noted below.
[2023-04-30] MEDS ORDERED: ATROPINE SULFATE 0.1 MG/ML 10ML SYR IV STA (10:36)
[2023-04-30] MEDS ORDERED: ePHEDrine sulfate 50 MG/ML AMP ONE (10:40)
[2023-04-30] MEDS ORDERED: GLYCOPYRROLATE 0.2 MG/ML VIAL IV ONE (10:43)
[2023-04-30] MEDS: fentaNYL citrate PF 100 MCG/2 ML VIAL IV PRN ×2 (10:45→10:55)
--- NOTE | 2023-04-30 11:07 | Anesthesiology Progress Note ---
Date of Service April 30, 2023 Anesthesia Post Procedure Vital Signs Vital Signs: Temp Pulse Resp BP Pulse Ox O2 Del Method O2 Flow Rate 04/30/23 11:00 61 20 100/75 100 Nasal Cannula 2 04/30/23 10:50 67 12 114/83 100 Nasal Cannula 2 04/30/23 10:40 73 21 114/81 100 Nasal Cannula 3 04/30/23 10:30 42 L 13 107/61 95 Nasal Cannula 3 04/30/23 10:20 46 L 14 127/69 97 Oxymask 6 04/30/23 10:11 36 C L 62 10 L 118/78 99 Oxymask 6 04/30/23 05:30 36.8 C 79 18 191/89 H 99 Room Air Pain Intensity Left Breast: Pain Intensity: 4 Transfer of Care Handoff Completed per policy Notes Mental Status: alert / awake / arousable Patient Amnestic to Procedure: Yes Nausea / Vomiting: adequately controlled Pain: adequately controlled Airway Patency, RR, SpO2: stable & adequate BP & HR: stable & adequate Hydration State: stable & adequate Anesthetic Complications: no major complications apparent
[2023-04-30] MEDS ORDERED: MoRPHine SULFATE 2 MG/ML CARP IV PRN (12:59)
[2023-04-30] MEDS ORDERED: ACETAMINOPHEN 325 MG TAB PO PRN (12:59)
[2023-04-30] MEDS ORDERED: ALBUTEROL HFA 8 GM INHALER INH PRN (12:59)
[2023-04-30] MEDS: LACTATED RINGER'S 1,000 ML IV SCH (13:02)
[2023-04-30] MEDS ORDERED: HYDROCORTISONE 1% CRM 30 GM TUBE EXT PRN (13:04)
[2023-05-01] MEDS: LACTATED RINGER'S 1,000 ML IV SCH (02:27)
[2023-05-01 07:40] LABS: Basophils # (auto) 0.02 K/uL (0.00-0.20); Basophils % (auto) 0.2 %; Eosinophils # (auto) 0.04 K/uL (0.00-0.50); Eosinophils % (auto) 0.4 %; Hematocrit (blood only) 35.1 % (37.0-47.0); Hemoglobin 11.7 g/dl (12.0-16.0); Immature Granulocytes # (auto) 0.03 K/uL (0.01-0.20); Immature Granulocytes % (auto) 0.3 %; Lymphocytes # (auto) 2.44 K/uL (1.20-3.40); Lymphocytes % (auto) 22.1 %; Mean Corpuscular Hemoglobin 28.4 pg (25.0-34.0); Mean Corpuscular Hgb Conc 33.3 g/dL (32.0-36.0); Mean Corpuscular Volume 85.2 fL (80.0-100.0); Mean Platelet Volume 9.4 fL (9.4-12.4); Monocytes # (auto) 1.21 K/uL (0.11-0.59); Neutrophils # (auto) 7.28 K/uL (1.40-6.50); Platelet Count 261 K/uL (130-400); RDW Coefficient of Variation 13.4 % (11.5-14.5); RDW Standard Deviation 41.3 fL (36.4-46.3); Red Blood Count 4.12 M/uL (4.20-5.40); White Blood Count 11.02 K/ul (4.8-10.8)
--- NOTE | 2023-05-01 07:49 | Surgery Progress Note ---
Date of Service May 01, 2023 Assessment & Plan (1) DCIS (ductal carcinoma in situ): Plan: POD 1 Left breast mastectomy Patient reports she is feeling well Had some chest pressure overnight but since has pasted after taking albuterol Has chronic AM cough Denies CP, SOB, pain, n/v L mastectomy site, steri strips , HANNAH drain serosanguineous fluid , no s/s of infection noted wrapped with jj wrap Desires to go home today, will keep HANNAH drain To follow up in the office in [address] Simental Admission and Anticipated Discharge Date Admission Date: April 30, 2023 Subjective Patient reports she is feeling well Had some chest pressure overnight but since has pasted after taking albuterol Denies CP, SOB, pain Has chronic AM cough Review of Systems Constitutional: no fever and no chills Ear, Nose, Mouth, Throat: no problem reported Respiratory: + cough; no dyspnea Cardiovascular: no chest pain Gastrointestinal: no nausea and no vomiting Genitourinary: no problem reported Musculoskeletal: no muscle weakness Integumentary: S/P left mastectomy Neurologic: no confusion and no memory loss Physical Exam Physical Exam: alert oriented Constitutional: cooperative and comfortable; no acute distress ENMT: external ear and nose normal, oropharynx normal Neck: trachea midline, no thyromegaly Respiratory: normal respiratory effort and able to speak in complete sentences; no respiratory distress Cardiovascular: Rate/Rhythm: regular rate Chest (Breasts): Additional Comments: S/p L mastectomy, steri strips , HANNAH drain serosanguineous fluid , no s/s of infection noted wrapped with jj wrap Musculoskeletal: no cyanosis or clubbing, extremities motor strength 5/5 Psychiatric: A+Ox3, euthymic affect Results & Data Vital Signs (Past 12 Hours) Vital Signs Temp Pulse Resp BP Pulse Ox O2 Del Method 05/01/23 07:04 97.9 F 68 16 134/71 96 Room Air 05/01/23 03:11 98.1 F 75 16 137/78 95 Room Air 04/30/23 23:30 81 18 97 Room Air 04/30/23 22:58 97.9 F 76 16 161/76 H 97 Room Air PG Care Time/CCT Total # of Minutes Spent Total Time Spent with Patient: Total time spent is greater than 50% in coordination of care (as documented) at patient's floor/unit and/or counseling patient: Coding Level of Care Code 03072 Post Operative Follow-Up Diagnoses Ductal carcinoma in situ (DCIS) of left breast D05.12 Laterality: left (1) DCIS (ductal carcinoma in situ) Laterality: left Qualified Code(s): D05.12 - Intraductal carcinoma in situ of left breast
[2023-05-01] MEDS: FLUTICASONE/VILANTEROL 100/25MCG 14 PUFFS/INHALER INH SCH ×2 (08:25→08:26)
[2023-05-01 08:36] LABS: BUN Creatinine Ratio 23.8 (10-20); Calcium 9.1 mg/dl (8.6-10.3); Creatinine Clr Calc Pharmacy 51.6 ml/min; Est GFR (African American) 94.8 ml/min; Est GFR (Non-African American) 81.8 ml/min
[2023-05-01] MEDS ORDERED: LORATADINE 10 MG TAB PO SCH (09:00)
[2023-05-01] MEDS ORDERED: METOPROLOL SUCC 25MG EXT REL TAB PO SCH (09:00)
--- NOTE | 2023-05-01 11:23 | Electrocardiogram Report ---
Test Reason : Blood Pressure : / mmHG Vent. Rate : 077 BPM Atrial Rate : 077 BPM P-R Int : 188 ms QRS Dur : 118 ms QT Int : 404 ms P-R-T Axes : 068 -55 042 degrees QTc Int : 457 ms Sinus rhythm with occasional Premature ventricular complexes Right bundle branch block Left anterior fascicular block Bifascicular block Minimal voltage criteria for LVH, may be normal variant Abnormal ECG When compared with ECG of 10-MAY-2021 22:39, Premature ventricular complexes are now Present Right bundle branch block has replaced Incomplete right bundle branch block Confirmed by Dae Snyder ([id number]) on 05/01/2023 11:23:30 AM Referred By: Sil Simental Confirmed By:Dae Snyder
--- NOTE | 2023-05-01 12:34 | Discharge Summary ---
<Statement entered by Sil Simental DO - 05/01/23 16:24> Patient had a h/o prior severe post operative disorientation. There were no such issues she reported with this surgery during her extended observatory period. This case was discussed with the surgical PA, I agreed with the plan. Date of Service May 01, 2023 Principal Diagnosis Left breast mastectomy Discharge Exam alert oriented Constitutional cooperative and comfortable; no acute distress ENMT external ear and nose normal, oropharynx normal Neck trachea midline, no thyromegaly Respiratory normal respiratory effort and able to speak in complete sentences; no respiratory distress Cardiovascular Rate/Rhythm: regular rate Musculoskeletal no cyanosis or clubbing, extremities motor strength 5/5 Psychiatric A+Ox3, euthymic affect Discharge Data Allergies Allergy/AdvReac Type Severity Reaction Status Date / Time Penicillins Allergy Intermediate Rash Verified 04/30/23 05:50 amlodipine AdvReac Intermediate lower leg Verified 04/30/23 05:50 swelling oxycodone AdvReac Intermediate Confusion Verified 04/30/23 05:50 tramadol AdvReac Intermediate confusion Verified 04/30/23 05:50 Procedures Performed Operation Date: 04/30/23 07:00 Actual Procedures p Left Breast Mastectomy(Left) - Sil Simental DO Ordered Studies 04/30/23 05:00 US - OR guided needle placemen Routine Hospital Course (1) DCIS (ductal carcinoma in situ): The patient underwent an elective Left breast mastectomy with Dr. Simental on 04/30/23 and was admitted to the hospital for overnight observation and care. The patients diet was advanced and she tolerated well without nausea or vomiting. Pain has been controlled with PO Tylenol. The patient has a HANNAH drain and was taught how to care and use drain prior to discharge. On post operative day one the patient reports she is feeling well. She stated that she had some chest pressure overnight but since has pasted after using an albuterol inhaler. She has a chronic AM cough, and admits to using her incentive spirometer without difficulty and denies shortness of breath. Left post operative mastectomy site is covered with an jj wrap that encompasses her torso. Underneath she has gauze and steri strips on the left side of the chest with a HANNAH drain, draining serosanguineous fluid. No s/s of infection noted. The patient expressed desire to go home. The patients vital signs have remained stable throughout her course of stay. Her WBC are mildly elevated at 11 , which is expected post operatively. The patient was deemed stable for discharge and was given return precautions, and follow up instructions on 05/01/23. Total Time Total Time Spent Total Time Spent (In Minutes): 30 Discharge Plan Discharge Items Patient Disposition: Home - Self-Care Reason For Visit: Ductal Carcinoma in Situ (DCIS) of Left Breast Discharge Diagnosis: left breast mastectomy Activity: Per Instructions section Lifting: No more than 5 pounds Lifting Comment: no heavy lifting with left arm >5lbs Bathing Comment: keep incisions dry until your follow up with the surgeon; may sponge bath Exercise/Sports: Wait until after follow-up appointment Non-emergency contact: Surgeon Call non-emergency contact if: you have any medication questions, your symptoms worsen, your pain is not controlled, you have a fever, your temperature is above 101.5, your wound has increased redness, your wound has increased drainage and your wound pain has increased Follow-up/Referrals: Beverley Arreola DO [Primary Care Provider] - Sil Simental DO [Physician] - (Please call to schedule follow up in clinic within 2 weeks ) Diet: Regular Addtl Attending Provider Instructions: You may purchase Tylenol over the counter if needed for additional pain control over the next few days. Take per manufacturers instructions continue to wear your jj bandage or a compressive garment until your follow up with the surgeon. may keep a gauze dressing over your incision as needed for comfort Please care for your surgical drain as you have been instructed prior to discharge from the hospital. Empty drain 2-3x/daily and record output. May all the office when the drain is <30cc/day over 2 days. Pending Studies at Discharge: Yes Studies:: surgical pathology Stand-Alone Forms: [facility] [address] Medications and DC Order Prescriptions: Continued albuterol sulfate [Proventil HFA] 90 mcg/actuation HFA aerosol inhaler 2 puff inhalation QID PRN (Reason: shortness of breath or wheezing) Qty: 6.7 2RF Rx Instructions: Pt will pay out of pocket for Brand. Dulera 100-5 mcg/actuation HFA aerosol inhaler 2 puff inhalation BID Qty: 39 2RF metoprolol succinate 25 mg tablet extended release 24 hr 25 mg PO QAM Qty: 90 1RF loratadine [Claritin] 10 mg tablet 10 mg PO QAM Qty: 90 1RF hydrocortisone 1 % cream 1 applic topical BID PRN (Reason: prn) Prolia 60 mg/mL syringe 60 mg subcut Q6M Rx Instructions: DUE IN JULY acetaminophen 500 mg tablet 500 mg PO Q6H PRN (Reason: Pain) losartan 25 mg tablet 25 mg PO QAM Airborne (ascorbate sodium) 333-1.7 mg Tablet,Chewable 4 tab PO QAM Discharge Orders: Discharge Order (Routine); Ordered 05/01/23 Ordered By: Lurdes Castillo/Other Patient Handouts: Post Op Drain Emptying Steps Admission Data Admit Date/Time: 04/30/23 10:19 Attending Provider: Sil Simental Admit Provider: Sil Simental Primary Care Provider: Beverley Arreola Other Interventions: Discharge Summary Assessment (RN) Last Done: 05/01/23 08:58 Coding Level of Care Code 67089 IN/OBS DISCH 30 MIN/LESS Diagnoses Ductal carcinoma in situ (DCIS) of left breast D05.12 Laterality: left
== END 2023-05-01 11:28 | disposition home or self-care (01) ==
LOC: 3W 05:09 → ASU 05:09
DX: I49.3 Ventricular premature depolarization; Z79.899 Other long term (current) drug therapy; I10 Essential (primary) hypertension; Z88.5 Allergy status to narcotic agent; D05.12 Intraductal carcinoma in situ of left breast; Z88.0 Allergy status to penicillin; Z88.8 Allergy status to other drugs, medicaments and biological substances; E78.5 Hyperlipidemia, unspecified; J45.909 Unspecified asthma, uncomplicated